=== PATIENT | male | born 1975 | race Caucasian/White ===

== ENCOUNTER 2018-12-23 13:20 | Outpatient (REF) | payer BC, SELFPAY ==
[2018-12-23 19:35] LABS: Anion Gap 12.7 mmol/L (3-11); BUN 20 mg/dL (7-18); CO2 24.3 mmol/L (21.0-32.0); CREATININE 1.02 mg/dL (0.70-1.30); Calcium 9.2 mg/dL (8.5-10.1); Chloride 105 mmol/L (98-107); Glucose 88 mg/dL (70-100); Sodium 142 mmol/L (136-145); TSH (W/Ref FT4) 1.94 uIU/mL (0.36-3.74)
== END 2018-12-23 13:40 ==
LOC: NCHCN 13:20
PROVIDERS: PCP Nurse Practitioner Adult Health; Visit Provider Family Medicine
DX: I10 Essential (primary) hypertension (principal); Z79.1 Long term (current) use of non-steroidal anti-inflammatories (NSAID)
CPT/HCPCS: 80048; 84443

== ENCOUNTER 2020-02-06 19:27 | Outpatient (REF) | payer BC, SELFPAY ==
[2020-02-06 18:55] LABS: Anion Gap 8.3 mmol/L (3-11); BUN 15 mg/dL (7-18); CO2 25.7 mmol/L (21.0-32.0); CREATININE 1.05 mg/dL (0.70-1.30); Calcium 8.8 mg/dL (8.5-10.1); Chloride 105 mmol/L (98-107); Glucose 92 mg/dL (74-106); Potassium 4.2 mmol/L (3.5-5.1); Sodium 139 mmol/L (136-145)
== END 2020-02-06 19:47 ==
LOC: NCHCN 19:27
PROVIDERS: PCP Nurse Practitioner Adult Health; Visit Provider Family Medicine
DX: I10 Essential (primary) hypertension (principal)
CPT/HCPCS: 80048

== ENCOUNTER 2021-02-03 12:05 | Outpatient (REF) | payer BC, SELFPAY ==
[2021-02-03 18:22] LABS: Anion Gap 13.7 mmol/L (3-11); BUN 18 mg/dL (7-18); CO2 23.3 mmol/L (21.0-32.0); Calcium 9.1 mg/dL (8.5-10.1); Chloride 104 mmol/L (98-107); Glucose 90 mg/dL (74-106); Potassium 4.4 mmol/L (3.5-5.1); Sodium 141 mmol/L (136-145)
== END 2021-02-03 12:06 | disposition home or self-care (01) ==
LOC: NCHCN 12:05
PROVIDERS: PCP Nurse Practitioner Adult Health; Visit Provider Family Medicine
DX: I10 Essential (primary) hypertension (principal)
CPT/HCPCS: 80048

== ENCOUNTER 2021-12-31 21:22 | Outpatient (REF) | payer OTHER, SELFPAY ==
[2021-12-31 16:24] LABS: BUN 18 mg/dL (7-18); CREATININE 0.9 mg/dL (0.70-1.30); Calcium 9.1 mg/dL (8.5-10.1); Calculated LDL 98 mg/dL (<100); Chloride 102 mmol/L (98-107); Cholesterol 202 mg/dL (<200); Estimated GFR 106.01 (mL/min/1.73m2); Glucose 92 mg/dL (74-106); HDL Cholesterol 46 mg/dL (40-60); Hemoglobin A1C 5.2 % (<5.7); Sodium 139 mmol/L (136-145); Triglyceride 292 mg/dL (<150)
[2021-12-31 16:45] LABS: Uric Acid 6.9 mg/dL (3.5-7.2)
[2022-01-02 10:23] LABS: Hepatitis C Ab w Rflx HCV PCR Negative (Negative)
== END 2021-12-31 21:23 | disposition home or self-care (01) ==
LOC: NCHCN 21:22
PROVIDERS: PCP Nurse Practitioner Adult Health; Visit Provider Family Medicine
DX: M10.9 Gout, unspecified (principal); Z00.00 Encounter for general adult medical examination without abnormal findings; I10 Essential (primary) hypertension
CPT/HCPCS: 80048; 80061; 86803; 83036; 84550

== ENCOUNTER 2022-09-17 09:13 | Day surgery (SDC) | payer OTHER, SELFPAY ==
--- NOTE | 2022-09-16 21:53 | W.PM.DSUDISC ---
Date of service: 09/17/22 Time of Service: 11:57 Discharge Plan Disposition Patient Disposition: Home Condition: Good Discharge Details Reason For Visit: Screening colonoscopy Attending Provider: Curt Huff Primary Care Provider: Riccardo Small Home Meds and New Rx's Prescriptions: Continued meloxicam 7.5 mg tablet 7.5 mg PO DAILY amlodipine-valsartan 10-160 mg tablet 1 tab PO DAILY Discontinued bisacodyl [Dulcolax (bisacodyl)] 5 mg tablet,delayed release (DR/EC) 5 mg PO ONCE Qty: 4 0RF Rx Instructions: Take per colonoscopy instructions provided by ordering providers office polyethylene glycol 3350 17 gram/dose powder 17 g PO ONCE Qty: 238 0RF Rx Instructions: Take per colonoscopy instructions provided by ordering providers office Discharge Instructions Instructions: Colorectal Polyps (GEN) Additional Instructions: Thiago, we were able to complete your colonoscopy today without any difficulty. The quality of your preparation was outstanding. Visualization was excellent. I did find 2 polyps. Both were quite small. In fact, one of them may just be some mild inflammation as opposed to a true polyp. Regardless, I removed both of these completely. We will take some time to get the results from the pathologist, but once I have the interpretation of the polyps, I will be in touch with regards to my recommendations 1. If tolerated, consume a soft, low fiber diet for 1-2 days. 2. Do not drive, drink alcohol, operate machinery, make critical decisions, or do activities that require coordination or balance for 24 hours. 3. Because air was put into your colon during the procedure, expelling air from your rectum (passing gas or farting) is normal. 4. You may not have a bowel movement for 1-3 days because of the colonoscopy prep. This is normal. 5. Go directly to the emergency room if you notice any of the following: Develop chills (warm to touch), or if you have a thermometer and your temperature is above 101 Difficulty breathing or difficultly swallowing Persistent vomiting Severe abdominal pain, other than gas cramps Severe chest pain Black, tarry stools Any bleeding ? exceeding one tablespoon 6. Call your physician if the site where your intravenous was started becomes red, swollen, painful, and warm to touch. 7. Your physician has reviewed your pre-procedure medications. Please continue to take those medications as previously ordered. You will be given specific information/education regarding any changes to your medications before leaving. Activity:: Activity as Tolerated Diet:: As Tolerated Discharge Orders Discharge Orders: Discharge Order (Routine); Ordered 09/16/22 Ordered By: Curt Huff DS: Diagnosis Discharge Diagnosis (1) Colon cancer screening: Status: Acute Asessment and Plan: Follow-up on polypectomy results
--- NOTE | 2022-09-16 21:54 | COLE_ITS ---
Date of service: 09/17/22 Time of Service: 11:58 Colonoscopy Report Date of procedure: 09/17/22 Pre-op diagnosis general: Screening colonoscopy Post-op diagnosis procedure note: other (Colon polyps) Procedure: Colonoscopy with polypectomy Surgeon: Curt Huff Anesthesia Type: General:No Airway Estimated blood loss (mL): 10 Pathology: other (Colon polyps from 70 cm and 65 cm) Complications: None Disposition: same day Indications: Bello a 47 year old man in need of a screening colonoscopy Prep: Miralax/Dulcolax Procedure Start Time: 11:32 Procedure End Time: 11:46 Retraction Time: 9 Findings: Colon polyps at 70 cm and 65 cm Procedure Description: After the induction of monitored anesthetic care, and with the patient in left lateral decubitus position, I began by performing an external anorectal exam.? Perineum and skin were normal, as was the anal verge.? There was no evidence of external hemorrhoids.? Next, I performed a digital rectal exam.? I did not appreciate any abnormal findings.? Next, I advanced a colonoscope into the rectal vault.? I performed retroflexion.? This appeared normal to me.? Using insufflation, I then advanced the colonoscope beyond the rectal folds and into the sigmoid colon before advancing towards the cecum.? The quality of the prep was outstanding.? The scope was noted to be in the cecum by identification of the ileocecal valve and appendiceal orifice.? I then began withdrawing the colonoscope using repeated irrigation as necessary for full evaluation of the colonic mucosa. Around 70 cm from the anal verge I identified a 0.5 cm polyp. ?It appeared sessile in character. ?I was able to remove this with a cold forcep polypectomy. This required 2 bites. It was completely excised. ?I examined the site, and there was minimal bleeding. ?Similarly, there was a 0.25 cm polyp ar ound 65 cm from the anal verge. This was also sessile, and also removed with cold forcep polypectomy. Once this was completed, I continued to withdraw the scope and examine the remainder of the colonic mucosa.?Once the scope was withdrawn to the level of the rectum, great care was taken to examine portions of the rectal folds.? Finally, the scope was withdrawn and the patient was brought to the same-day surgery recovery unit as the anesthetic wore off. ?The findings and instructions were shared with the patient prior to discharge.
[2022-09-17 09:35] VITALS: BP 123/88; PULSE 59; RESP 18; TEMP 36.7; O2SAT 97
[2022-09-17] MEDS: Lactated Ringers 1,000 ML 80 ML IV (09:35)
--- NOTE | 2022-09-17 11:12 | W.ANESPRE ---
General Info Date of Service Date Performed: 09/17/22 Height: 5 ft 10 in Weight: 104.8 kg Body Mass Index (BMI): 33.1 Surgical Procedure: Operation Date: 09/17/22 11:05 Proposed Procedure Side Surgeon dk Huff MD Meds Allergies and Home Medications Allergies Allergy/AdvReac Type Severity Reaction Status Date / Time red dye Allergy Intermediate hives Uncoded 09/17/22 09:33 Home Medication Medication Instructions Recorded amlodipine 10 mg-valsartan 160 mg 1 tab PO DAILY 01/29/22 tablet meloxicam 7.5 mg tablet 7.5 mg PO DAILY 09/10/22 Current Visit Medications: Current Medications Generic Name Dose Route Start Last Admin Trade Name Freq PRN Reason Stop Dose Admin Hyoscyamine Sulfate 0.125 mg 09/16/22 21:56 Hyoscyamine 0.125 Mg Sl/Oral/Chew SL 10/16/22 21:55 DIRECTED PRN Ringer's Solution 1,000 mls @ 80 mls/hr 09/17/22 06:00 09/17/22 09:35 IV 10/16/22 23:59 80 mls/hr INFUSION PEPPER Administration IV Miscellaneous Supplies 1 each 09/17/22 06:00 Iv Access IV 10/16/22 23:59 DIRECTED PEPPER Ondansetron HCl 4 mg 09/16/22 21:56 Ondansetron 4 Mg/2 Ml Vial IVP 10/16/22 21:55 Q4H PRN PRN Nausea / Vomiting Sodium Chloride 0 ml 09/17/22 06:00 Normal Saline Flush 10 Ml Syr IV 10/16/22 23:59 PRN PRN Sodium Chloride 0 ml 09/17/22 06:00 Normal Saline 10 Ml Vial IJ 10/16/22 23:59 DIRECTED PRN Sterile Water 0 ml 09/17/22 06:00 Water,Injection,Sterile 10 Ml Vial IJ 10/16/22 23:59 DIRECTED PRN PFSH Active Problems Active Problems: Problem Status Onset Code Podagra M10.9 Hypertension I10 Colon cancer screening Z12.11 Medical History Medical History Compression fracture of spine (~2002) fell from tree stand Conductive hearing loss in left ear Hyperlipidemia NSAID long-term use Tinea corporis Urticaria, idiopathic Surgical History Surgical History (Updated 09/17/22 @ 09:55 by Elizabeth Freeman RN) S/P lateral meniscus repair of left knee pt unsure if medial or lateral Tobacco Smoking/Tobacco Use Status: Former Tobacco Use Alcohol Alcohol Intake: current Alcohol intake frequency: a few times a month Alcohol type: beer Substance Use Substance use: Never Substance use type: does not use Vital Signs and Lab Results Vital Signs Most Recent Vital Signs in EMR: Most Recent Vital Signs Temp Pulse Resp BP Pulse Ox 36.7 C 59 L 18 123/88 97 09/17/22 09:35 09/17/22 09:35 09/17/22 09:35 09/17/22 09:35 09/17/22 09:35 Lab Results Blood Type / Crossmatch: No Data to Display Complete Blood Count: No Data to Display Complete Metabolic Panel: No Data to Display Liver Function Panel: No Data to Display Coagulation Panel: No Data to Display Cardiac Panel: No Data to Display Arterial Blood Gas: No Data to Display Venous Blood Gas: No Data to Display Pancreas Panel: No Data to Display Thyroid Panel: No Data to Display Infectious Disease: No Data to Display Blood Cultures: No Data to Display Toxicology Panel: No Data to Display Imaging and Studies Imaging and Studies Study information below may be from another EMR and interpreted by another provider. Please see original notes in EMR for more complete details. Stress Test Summary: 11/05/2014: Impressions: Normal perfusion by [id number] Sestamibi [facility]. Summary: 1. Myocardial perfusion imaging: No myocardial perfusion defects noted. 2. The calculated left ventricular ejection fraction after stress: 60%. Anesthesia Assessment and Plan Anesthesia History Personal History: No History of Anesthesia Complications Family History: No Family History of Anesthesia Complications Exercise Tolerance Exercise Tolerance: Metabolic Equivalents>4 Pertinent Negatives Pertinent Negatives: No Symptoms of GERD, No Major Cardiovascular Symptoms or Complaints and No Major Pulmonary Symptoms or Complaints Cardiac & Pulmonary Exam Cardiac Exam: Normal S1/S2 Heart Sounds Pulmonary Exam: Clear Bilateral Breath Sounds Implantable Cardiac Device Does patient have a Pacemaker or an ICD?: No Airway Exam Known Difficult Airway: No Mallampati Class: 1 Mouth Opening: Normal (> 3cm) Thyromental Distance: Greater than 3 cm Facial Hair: Full Bazan Neck Range of Motion: Full ROM Neck Circumference: Normal Teeth Condition: Normal Dentition (Top right chipped tooth) ASA Classification ASA Score: ASA 2 Emergency Case?: No NPO Status NPO Status: NPO Clears >2 hours, Solids >8 hours Anesthesia Plan Resuscitation Status: Full Code Anesthesia Technique: General Anesthesia Airway Planned: Natural Airway Monitors Used: Standard Monitors
[2022-09-17 11:15] VITALS: BMI 33.1
--- NOTE | 2022-09-17 11:37 | BOWEL_PTH ---
PATIENT: Bello Keller LOC: [facility] U#:[id number] AGE/SX: 47/M ROOM: RE09/17/[address]: Curt Huff MD : 1975 BED: DIS: 09/17/2022 SPEC #: [id number] RECD: 09/17/22 12:59 STATUS: AAYUSH RE #: [id number] RODOLFO: 09/17/22 11:[address]: Curt Huff DEPT: Surgical Specimen RECD BY: Prabha Hernandez ENTERED: 09/17/22 13:00 SP TYPE: Bowel OTHR DR: Riccardo Small Tissues: 1 - BIOPSY BOWEL 2 - BIOPSY BOWEL Procedures: GROSS AND MICRO LEVEL 4 Comments: [id number]
[2022-09-17 11:52] VITALS: BP 123/111; PULSE 73; RESP 16; TEMP 36.5; O2SAT 97
[2022-09-17 12:11] VITALS: BP 127/82; PULSE 53; RESP 18; TEMP 36.4; O2SAT 96
--- NOTE | 2022-09-17 12:18 | W.ANESPOSTOP ---
Postoperative Evaluation Date, Time and Location Date Performed: 09/17/22 Vital Signs Most Recent Imported Vital Signs: Most Recent Vital Signs Temp Pulse Resp BP Pulse Ox 36.7 C 59 L 18 123/88 97 09/17/22 09:35 09/17/22 09:35 09/17/22 09:35 09/17/22 09:35 09/17/22 09:35 Pain Score Most Recent Pain Score: Most Recent Pain Score Pain Level 0 09/17/22 09:35
--- NOTE | 2022-09-17 13:31 | W.ANESPOSTOP ---
Postoperative Evaluation Date, Time and Location Date Performed: 09/17/22 Time Performed: 12:15 Patient Location: Day Surgery Unit Vital Signs Most Recent Imported Vital Signs: Most Recent Vital Signs Temp Pulse Resp BP Pulse Ox 36.4 C L 53 L 18 127/82 96 09/17/22 12:11 09/17/22 12:11 09/17/22 12:11 09/17/22 12:11 09/17/22 12:11 Pain Score Most Recent Pain Score: Most Recent Pain Score Pain Level 0 09/17/22 12:11 Assessment Mental Status: Awake (Alert & Oriented to Patient Baseline) Airway and Respiratory Function: Patent airway with normal (patient baseline) respiratory exam Cardiovascular Function: Hemodynamically Stable Hydration Status: Adequately Hydrated Nausea & Vomiting: No Nausea or Vomiting Pain: Pt. Denies Any Pain Peripheral Nerve Block: Patient did not receive a nerve block
== END 2022-09-17 09:14 | disposition home or self-care (01) ==
PROVIDERS: PCP Family Medicine; Visit Provider Surgery
PROC: 0DJD8ZZ Inspection of Lower Intestinal Tract, Via Natural or Artificial Opening Endoscopic (ICD-10-PCS; CPT 45378; principal; 2022-09-17 11:00)
DX: Z12.11 Encounter for screening for malignant neoplasm of colon (principal); K63.5 Polyp of colon
CPT/HCPCS: 45380; 88305; J2001

== ENCOUNTER 2023-05-25 17:22 | Outpatient (REF) | payer OTHER, SELFPAY ==
[2023-05-25 21:19] LABS: BUN 18 mg/dL (7-18); Calcium 9.4 mg/dL (8.5-10.1); Chloride 105 mmol/L (98-107); Estimated GFR 92.26 (mL/min/1.73m2); Glucose 110 mg/dL (74-106); Potassium 3.8 mmol/L (3.5-5.1); Sodium 142 mmol/L (136-145)
[2023-05-26 19:28] LABS: HIV-1/2 Ag & Ab Screen Negative (Negative)
== END 2023-05-25 17:23 | disposition home or self-care (01) ==
LOC: NCHCN 17:22
PROVIDERS: PCP Family Medicine; Visit Provider Family Medicine
DX: Z00.00 Encounter for general adult medical examination without abnormal findings (principal); I10 Essential (primary) hypertension; Z11.4 Encounter for screening for human immunodeficiency virus [HIV]
CPT/HCPCS: 80048; 87389

== ENCOUNTER 2024-07-18 12:10 | Outpatient (REF) | payer OTHER, SELFPAY ==
[2024-07-18 19:29] LABS: Anion Gap 11.4 mmol/L (3-11); BUN 19 mg/dL (7-18); CO2 23.6 mmol/L (21.0-32.0); CREATININE 1.1 mg/dL (0.70-1.30); Calcium 9.5 mg/dL (8.5-10.1); Chloride 106 mmol/L (98-107); Estimated GFR 81.78 (mL/min/1.73m2); Glucose 96 mg/dL (74-106); Potassium 4.5 mmol/L (3.5-5.1); Sodium 141 mmol/L (136-145)
== END 2024-07-18 12:11 | disposition home or self-care (01) ==
LOC: NCHCN 12:10
PROVIDERS: PCP Student in an Organized Health Care Education/Training Program; Visit Provider Student in an Organized Health Care Education/Training Program
DX: I10 Essential (primary) hypertension (principal)
CPT/HCPCS: 80048

== ENCOUNTER 2024-08-31 11:10 | Outpatient (CLI) | payer OTHER, SELFPAY ==
--- NOTE | 2024-08-31 | DI.RAD_ITS ---
Exam(s) XR HIP LT COMPLETE AP PELVIS EXAM: XR HIP LT COMPLETE AP PELVIS CLINICAL HISTORY: LT HIP PAIN, M25.552, 3 WK PROGRESSIVELY WORSE ATRAUMATIC PAIN. TECHNIQUE: 2D digital imaging was performed of the left hip. Three views were obtained. AP pelvis and lateral left hip views were obtained. COMPARISON: No exams were available for comparison FINDINGS: BONES: No acute fracture is present. No bony destructive lesion is seen. JOINTS: No dislocation present. There is mild flattening of the articular surface of the left femoral head. There is a prominent acetabulum overhanging the lateral joint. The sacroiliac joints and sym physis pubis are unremarkable. The right hip is well maintained. SOFT TISSUE: Normal. 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 DATA REPOSITORY: RADIATION DOSE DELIVERED:
== END 2024-08-31 11:30 ==
LOC: DI 11:10
PROVIDERS: PCP Student in an Organized Health Care Education/Training Program; Visit Provider Student in an Organized Health Care Education/Training Program
DX: M16.12 Unilateral primary osteoarthritis, left hip
CPT/HCPCS: 73502